=== PATIENT | male | born 1995 | race Caucasian/White ===

== ENCOUNTER 2019-03-12 18:41 | Emergency (ER) | payer MEDICAID ==
[~2019-03-12] VITALS: Ht 177.8 cm; Wt 82.6 kg
[2019-03-12 18:52] VITALS: BP 133/70
--- NOTE | 2019-03-12 19:23 | NUR ---
PT WENT TO XRAY
--- NOTE | 2019-03-12 20:30 | NUR ---
ASSUMED CARE OF PT AT THIS TIME. C/O RIGHT 5TH DIGIT TOE PAIN S/P MECHANICAL FALL LAST NIGHT. AAOX4 WITH EVEN AND STEADY GAIT; PATIENT STATES PAIN OF 8/10; VSS; PATIENT POSITIONED FOR COMFORT; HOB ELEVATED; BEDRAILS UP X2; BED DOWN. ER MD MADE AWARE OF PT STATUS. WILL CONTINUE TO MONITOR.
[2019-03-12 21:10] VITALS: BP 134/74
--- NOTE | 2019-03-12 21:10 | NUR ---
Patient discharged with v/s stable. Written and verbal after care instructions given and explained. Patient alert, oriented and verbalized understanding of instructions. Ambulatory with steady gait. All questions addressed prior to discharge. ID band removed. Patient advised to follow up with PMD. Rx of MOTIRN given. Patient educated on indication of medication including possible reaction and side effects. Opportunity to ask questions provided and answered.
== END 2019-03-12 21:10 | disposition home or self-care (01) ==
LOC: MED 18:41
DX: S92.514A Nondisplaced fracture of proximal phalanx of right lesser toe(s), initial encounter for closed fracture (principal); W19.XXXA Unspecified fall, initial encounter; Y93.89 Activity, other specified; Y92.89 Other specified places as the place of occurrence of the external cause; Y99.8 Other external cause status
CPT/HCPCS: 73660; 99283